=== PATIENT | female | born 1970 | race Caucasian/White ===

== ENCOUNTER 2018-08-14 08:01 | Outpatient (CLI) | payer BC ==
[2018-08-14] MEDS ORDERED: Iopamidol 370 76% 100 ML VIAL ONE (09:00)
--- NOTE | 2018-08-14 12:59 | CT ---
CT OF THE CHEST WITH CONTRAST: Date: 08-14-18 Comparison: Chest films of 06-06-11, 08-06-15. There was said to be a pulmonary nodule though I do not appreciate it on those images. Axial slices were acquired today after giving IV contrast then coronal and sagittal reconstructions w ere done. No pulmonary nodule was seen. The lung parenchyma appears normal. There are no infiltrates, effusions , or fibrotic changes. The mediastinum shows no mass, adenopathy or other concern. No pericardial flu id was seen. There are no coronary calcifications. Scans into the upper abdomen showed no adrenal masses. The visible upper abdominal structures appear normal. IMPRESSION: Unremarkable CT of the thorax. Specifically, there is no evidence of pulmonary nodules of concern. POS: [facility]
== END 2018-08-14 08:02 | disposition home or self-care (01) ==
LOC: BURCT 08:01
PROVIDERS: ATTEND Clinical Nurse Specialist Medical-Surgical
DX: R91.1 Solitary pulmonary nodule (principal)
CPT/HCPCS: 71260; A4216